=== PATIENT | male | born 1965 | race Caucasian/White ===

== ENCOUNTER → 2024-08-25 08:15 | Outpatient (REF) | payer BC, SELFPAY | LOC: HWRCS 08:15 | PROVIDERS: ATTENDING PHYSICIAN Internal Medicine Cardiovascular Disease; FAMILY PHYSICIAN Family Medicine | DX: I50.20 Unspecified systolic (congestive) heart failure (principal); I25.5 Ischemic cardiomyopathy | CPT/HCPCS: 93306 ==